=== PATIENT | male | born 1950 | race Caucasian/White ===

== ENCOUNTER 2017-01-09 14:22 | Day surgery (SDC) | payer MEDICARE, OTHER, MEDICAID ==
[~2017-01-09] VITALS: Ht 182.9 cm; Wt 88.9 kg
[~2017-01-09 14:22] MED LIST: ALBUTEROL-1 PUFF/14. IN; CIALIS20 MG PO; FINASTERIDE5 M1 PO; GABAPENTIN300 MG PO; LEVOTHYROXINE0.05 MG PO; PRAVASTATIN 40M40 MG PO; VICOPROFEN 7.51 TAB PO
[2017-01-09 14:48] VITALS: BP 111/65
[2017-01-09 15:15] VITALS: BP 111/65
[2017-01-09 15:17] VITALS: BP 138/47
[2017-01-09 15:20] VITALS: BP 133/72
--- NOTE | 2017-01-09 15:23 | Procedure Note ---
Procedure detail Date of procedure: 01/09/17 Anesthesiologist: Zac solitario CRNA Complications: None Pre-procedure diagnosis: Degenerative disc disease lumbar spine multiple levels. Lumbar facet arthropathy. Lumbar spondylosis. Post-procedure diagnosis: Same. Indications for procedure: This patient is a very pleasant 66-year-old white male were treating her pain clinic for chronic low back pain that he describes as constant, dull, aching. Patient reports pain intensifies in flexion and extension. LEFT her RIGHT rotation. He rates his pain 8/10. She also has RIGHT leg radicular component at times. Patient's lumbar MRI reveals 1. Moderate spondylosis of the lumbar spine with areas of disc bulge,, disc protrusions, degenerative disc disease, along with facet and ligamentum flavum Procedure detail: Informed consent was obtained and the risk and benefits of the procedure was explained to the patient. Patient was taken to the procedure room where noninvasive monitors were placed, including noninvasive blood pressure cuff as well as pulse oximeter. The area over the lumbar spine was cleansed using chlorhexidine as a cleansing solution. I anesthetized the skin and subcutaneous tissues with 1% Lidocaine. I placed 22-gauge spinal needles into the facet joint / medial branches of [L3-L4, L4-L5, and L5-S1] bilaterally. Needle placement was confirmed with fluoroscopy. After confirmation of needle placement, each site was injected with 1 mL of 1% lidocaine and 0.25 % Marcaine and 10 mg of Depo- Medrol. A total of 80 mg of depo medrol was used for bilateral medial branch blocks of [L3-L4, L4-L5, and L5-S1] bilaterally. Patient tolerated the procedure without difficulty. There were no complications. Plan and disposition: Patient for evaluated 10 minutes post procedure. He reports 80 percent improvement terms of his lumbar back pain in flexion, extension, RIGHT and LEFT rotation. He'll follow up with us in the pain clinic for further evaluation. at [id number]
== END 2017-01-09 15:20 | disposition home or self-care (01) ==
LOC: PM 14:22
PROC: 3E0T33Z Introduction of Anti-inflammatory into Peripheral Nerves and Plexi, Percutaneous Approach (ICD-10-PCS; principal; 2017-01-09)
PROC: 3E0T3BZ Introduction of Anesthetic Agent into Peripheral Nerves and Plexi, Percutaneous Approach (ICD-10-PCS; 2017-01-09)
PROC: BR161ZZ Fluoroscopy of Lumbar Facet Joint(s) using Low Osmolar Contrast (ICD-10-PCS; 2017-01-09)
DX: M51.16 Intervertebral disc disorders with radiculopathy, lumbar region (principal); M54.06 Panniculitis affecting regions of neck and back, lumbar region
CPT/HCPCS: J1040

== ENCOUNTER → 2017-06-20 | Outpatient (CLI) | payer MEDICARE, OTHER, MEDICAID ==
[~2017-06-20] MED LIST changes: +ADULT LOW DOSE81 MG PO; +FLOMAX 0.4MG C0.4 MG PO; +LIVALO4 MG PO; +TIZANIDINE2 MG OR
--- NOTE | 2017-06-20 15:45 | RADIOLOGY REPORT PS360 ---
US [id number] HISTORY: ELEVATED CREATINE ORDERING PHYSICIAN: Noe Sykes MD PATIENT AGE: 66 years COMPARISON: None FINDINGS: RIGHT KIDNEY:Moderate to severe right hydronephrosis. Right kidney measures 11 x 6.5 x 8 cm. No obvious renal mass. LEFT KIDNEY:Moderate to severe left hydronephrosis. No obvious renal mass. OTHER FINDINGS: Urinary bladder is distended. The volume was calculated to be 1190 mL is with the post void volume calculated to be 673 mL's. IMPRESSION: 1. Moderate to severe bilateral hydronephrosis. 2. Distended urinary bladder with moderate amount of post void residual urine
== END ==
LOC: RAD 14:06 → COP 15:11 → RAD 06-21 13:00
DX: R79.89 Other specified abnormal findings of blood chemistry (principal)
CPT/HCPCS: G0463